=== PATIENT | male | born 1960 | race Two or more races ===

== ENCOUNTER 2020-05-23 21:34 | Emergency (ER) | payer OTHER ==
[~2020-05-23] VITALS: Ht 182.9 cm; Wt 99.8 kg
[2020-05-23 21:40] VITALS: BP 166/104
--- NOTE | 2020-05-23 22:02 | NUR ---
59 Y/O M PRESENTS TO ED C/O LT EYE VISION LOSS. PT STATES THAT HE SUDDENLY WOKE UP AND LOSS VISION ON HIS LEFT EYE. PT STATES IT "LOOKS BROWN & SILKY AND CAN SEE A HALF SNOW." PT ALSO STATES THAT HE CAN SEE "BLOOD ALL OVER" THE LEFT EYE. PT STATES THAT HE'S HAD THIS SYMPTOM BEFORE BUT NOW IS WORST. BED LOCKED AND IN LOWEST POSITION, SIDE RAIL UPX1. WILL CONTINUE TO MONITOR. MHX: BEHCET DISEASE, DVT (PT ON BLOOD THINNER), HTN NKA
--- NOTE | 2020-05-23 22:08 | NUR ---
DR. ROBLES AT BEDSIDE EVALUATING PT.
--- NOTE | 2020-05-23 22:52 | NUR ---
VISION TEST: LT 0, RT 20/40, BOTH 20/20
--- NOTE | 2020-05-23 23:40 | NUR ---
LABS AND ANIKA SWAB COLLECTED AND GIVEN TO THREADER OPERATOR.
--- NOTE | 2020-05-23 23:42 | NUR ---
PT TAKEN TO CT VIA WHEELCHAIR.
[2020-05-23 23:51] LABS: BASOPHILS % (AUTO) 0.7 % (0.0-2.0); EOSINOPHILS # (AUTO) 0.3 K/uL (0-0.4); EOSINOPHILS % (AUTO) 5.4 % (0.0-4.0); HEMATOCRIT 44.3 % (36-52); HEMOGLOBIN 14.7 g/dL (12.0-18.0); LYMPHOCYTES % (AUTO) 47.2 % (20.5-51.1); MEAN CORPUSCULAR HEMOGLOBIN 26 pg (27-31); MEAN CORPUSCULAR HGB CONC 33 g/dL (33-37); MEAN CORPUSCULAR VOLUME 78.3 fL (80-94); MONOCYTES # (AUTO) 0.7 K/uL (0.8-1.0); MONOCYTES % (AUTO) 11.7 % (1.7-9.3); NEUTROPHILS # (AUTO) 2.2 K/uL (1.8-7.7); PLATELET COUNT (AUTO) 272 K/uL (140-450); RED BLOOD CELL COUNT(AUTO) 5.65 MIL/uL (4.20-6.10); RED CELL DISTRIBUTION WIDTH 15.1 % (11.6-13.7); WHITE BLOOD COUNT (AUTO) 6.3 K/uL (4.8-10.8)
[2020-05-24 00:03] LABS: ALBUMIN 3.7 g/dL (3.4-5.0); ANION GAP 16.4 (8-16); CARBON DIOXIDE 24.6 mmol/L (21-32); CREATININE 1.1 mg/dL (0.6-1.3); PROTHROMBIN TIME 10.3 secs (10.8-13.4); TOTAL BILIRUBIN 0.4 mg/dL (0.0-1.0)
--- NOTE | 2020-05-24 00:07 | NUR ---
REPORT GIVEN TO JON VIA PHONE AT [facility] REGARDING PT. TRANSPORT ETA 45 MINS.
--- NOTE | 2020-05-24 00:11 | NUR ---
DR. OCONNOR AT BEDSIDE.
--- NOTE | 2020-05-24 00:57 | NUR ---
Patient to be transferred to [facility]. Is being transferred due to HIGHER LEVEL OF CARE FOR AMAUROSIS FUGAX. Receiving facility has accepting physician and available space. ER physician has signed transfer form. Patient or responsible democrat has agreed to transfer and signed form. Patient belongings inventoried and will be sent with patient. Copy of nursing notes, lab reports, EKG, Physicians Orders and X-rays to be sent with patient. Report called to JON at receiving facility. [facility] ambulance service has been called for transfer.
[2020-05-24 01:00] VITALS: BP 134/76
== END 2020-05-24 00:57 | disposition short-term general hospital (02) ==
LOC: MED 21:34
DX: H54.62 Unqualified visual loss, left eye, normal vision right eye (principal); M35.2 Behcet's disease; I82.409 Acute embolism and thrombosis of unspecified deep veins of unspecified lower extremity; Z20.828 Contact with and (suspected) exposure to other viral communicable diseases
CPT/HCPCS: 36415; 70450; 70480; 80053; 85025; 85610; 85730; 99285